=== PATIENT | female | born 1990 | race Caucasian/White ===

== ENCOUNTER 2020-08-11 00:39 | Emergency (ER) | payer OTHER ==
[~2020-08-11] VITALS: Ht 160 cm; Wt 52.2 kg
[~2020-08-11 00:39] MED LIST: BIRTH CONTROLL
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
[2020-08-11] MEDS ORDERED: CEFTRIAXONE 1 G VIAL ONE (00:58)
[2020-08-11] MEDS ORDERED: SODIUM BICARBONATE 5 ML VIAL ONE (00:58)
[2020-08-11] MEDS ORDERED: LIDOCAINE /MPF 1% VIAL 5 ML VIAL ONE (00:58)
[2020-08-11] MEDS ORDERED: TDAP [DIPH/PERTUSSIS/TET] 0.5 ML VIAL IM ONE ×2 (00:58→01:00)
[2020-08-11] MEDS ORDERED: LIDOCAINE 1%-EPI 1:100,000 20 ML VIAL ONE (00:58)
[2020-08-11] MEDS ORDERED: CEFTRIAXONE 1 G VIAL IM ONE (01:00)
[2020-08-11] MEDS ORDERED: LIDOCAINE 1%-EPI 1:100,000 20 ML VIAL IJ ONE (01:00)
[2020-08-11] MEDS ORDERED: SODIUM BICARBONATE 5 ML VIAL MC ONE (01:00)
[2020-08-11 01:04] LABS: BASOPHILS % (AUTO) 0.5 % (0.0-2.0); EOSINOPHILS % (AUTO) 3.4 % (0.0-6.0); HEMATOCRIT 41 % (33-45); HEMOGLOBIN 13.7 g/dL (11.5-14.8); LYMPHOCYTES # (AUTO) 3.4 /CMM (0.8-4.8); LYMPHOCYTES % (AUTO) 48.9 % (20.0-44.0); MEAN CORPUSCULAR HGB CONC 34 g/dl (31.0-36.0); MEAN CORPUSCULAR VOLUME 96 fL (82-100); MONOCYTES # (AUTO) 0.4 /CMM (0.1-1.30); MONOCYTES % (AUTO) 5.8 % (2.0-12.0); NEUTROPHILS # (AUTO) 2.8 /CMM (1.8-8.9); NEUTROPHILS % (AUTO) 41.4 % (43.0-81.0); PLATELET COUNT (AUTO) 245 /CMM (150-450); RED BLOOD CELL COUNT(AUTO) 4.24 MIL/uL (4.0-5.2); WHITE BLOOD COUNT (AUTO) 6.9 K/uL (4.3-11.0)
[2020-08-11 01:15] LABS: CALCIUM, SERUM 8.5 mg/dL (8.5-10.1); CREATININE 0.7 mg/dL (0.6-1.3); POTASSIUM 3.8 mmol/L (3.5-5.1)
--- NOTE | 2020-08-11 01:15 | NUR ---
ER AT BEDSIDE FOR WOUND CARE
[2020-08-11 01:28] LABS: ALBUMIN 3.7 g/dL (3.4-5.0); BILIRUBIN,DIRECT 0.1 mg/dL (0.0-0.2); BILIRUBIN,TOTAL 0.2 mg/dL (0.2-1.0); TOTAL PROTEIN, SERUM 7.5 g/dL (6.4-8.2)
[2020-08-11 02:11] LABS: BILIRUBIN,URINE NEGATIVE (NEGATIVE); COLOR,URINE YELLOW (YELLOW); LEUKOCYTE ESTERASE ,URINE NEGATIVE (NEGATIVE); NITRITE, URINE NEGATIVE (NEGATIVE); PROTEIN,URINE TRACE mg/dl (NEGATIVE); UGLUCOSE NEGATIVE (NEGATIVE); UROBILINOGEN,URINE 0.2 EU/dL (0.2)
--- NOTE | 2020-08-11 02:13 | NUR ---
CALL FROM LAB. RAPID COVID NEGATIVE.
[2020-08-11 02:31] LABS: BACTERIA,URINE 1+ /HPF (None Seen); SQUAMOUS EPITHELIAL CELL,UR Moderate /HPF (None Seen); URINE AMORPHOUS URATE Moderate /HPF (None Seen)
[2020-08-11 02:32] LABS: MUCUS,URINE Few /LPF (None Seen)
--- NOTE | 2020-08-11 03:00 | NUR ---
PT RESTING COMFORTABLY. VSS.
--- NOTE | 2020-08-11 08:29 | NUR ---
MAGDY [phone]
--- NOTE | 2020-08-11 09:55 | NUR ---
CALLED CLINICIAN ELVIS [phone]
--- NOTE | 2020-08-11 13:30 | NUR ---
JONNATHAN DIAMOND AT BEDSIDE TALKING TO PATIENT.
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
--- NOTE | 2020-08-11 15:12 | NUR ---
[employer]JOR[employer] MEMBER I.D. NUMBER [id number].
[2020-08-11] MEDS ORDERED: NORG1TAB82 PO (15:44)
[2020-08-11] MEDS ORDERED: ACETAMINOPHEN 325 MG TABLET ONE (16:14)
--- NOTE | 2020-08-11 16:49 | NUR ---
PT PROVIDED W/ FOOD TRAY. ALSO REQUESTED FOR PAIN MEDS. ERMD AWARE. TYLENOL 650MG PO GIVEN PER ERMD ORDER.
[2020-08-11] MEDS ORDERED: ACETAMINOPHEN 325 MG TABLET PO ONE (17:00)
--- NOTE | 2020-08-11 17:18 | NUR ---
[facility] CALLED FOR PSYCH EVAL. ETA 1 HOUR
--- NOTE | 2020-08-11 18:50 | NUR ---
[facility] RN AT BEDSIDE FOR PSYCH EVAL.
--- NOTE | 2020-08-11 19:35 | NUR ---
PT RESTING COMFORTABLY IN BED, CALM AND COOPERATIVE. VITAL SIGNS STABLE. NO ACUTE DISTRESS NOTED AT THIS TIME. SITTER AT BEDSIDE, WILL CONTINUE TO MONITOR
[2020-08-11] MEDS ORDERED: IBUPROFEN 600 MG TABLET PO ONE (22:30)
--- NOTE | 2020-08-11 22:30 | NUR ---
PT C/O L UPPER EXT PAIN S/P DRESSING CHANGE. MD AWARE
[2020-08-11] MEDS ORDERED: IBUPROFEN 600 MG TABLET ONE (22:31)
--- NOTE | 2020-08-12 02:05 | NUR ---
TRANSFER INFORMATION:PT WILL BE TRANSFERRED [facility] PER INSURANCE REQUEST ACCEPTING MD: DR. NOBLE NUMBER FOR REPORT: [phone] UNIT 2 ETA 0739
--- NOTE | 2020-08-12 02:55 | NUR ---
PT RESTING COMFORTABLY IN BED. VITAL SIGNS STABLE. NO ACUTE DISTRESS NOTED AT THIS TIME. SITTER STILL AT BEDSIDE, WILL CONTINUE TO MONITOR
--- NOTE | 2020-08-12 03:08 | NUR ---
ATTEMPTED TO GIVE REPORT AT [facility]. PER SAILAJA FROM [place], CALL BACK AFTER [phone]
[2020-08-12 07:05] VITALS: BP 115/63
--- NOTE | 2020-08-12 07:15 | NUR ---
REPORT GIVEN TO MARK CALVERT FROM [facility]
--- NOTE | 2020-08-12 07:45 | NUR ---
TRANSFERED TO [facility]. STABLE CONDITION.
== END 2020-08-12 07:47 ==
LOC: ER 00:50
DX: S61.512A Laceration without foreign body of left wrist, initial encounter (principal); X78.1XXA Intentional self-harm by knife, initial encounter; Y92.039 Unspecified place in apartment as the place of occurrence of the external cause; F10.129 Alcohol abuse with intoxication, unspecified; Y90.7 Blood alcohol level of 200-239 mg/100 ml; Z20.822 Contact with and (suspected) exposure to COVID-19
CPT/HCPCS: 12002; 36415; 80048; 80076; 80299; 80307; 80320 ×2; 81001; 84702; 85025; 86850; 87086; 87426; 96372; 99285; A6403; C9803; J0696; J3490 ×3; L0172; 90715; G0480